=== PATIENT | male | born 1980 | race Caucasian/White ===

== ENCOUNTER 2019-01-31 05:02 | Emergency (ER) | payer SELFPAY ==
[2019-01-31] MEDS ORDERED: ACETAMINOPHEN 500 MG TABLET (FP) PO ONE (05:20)
--- NOTE | 2019-01-31 05:27 | PDOC ---
Attending Attestation - Resident Resident Name: Agueda Escobar - ED Attending Attestation I have performed the following: I have examined & evaluated the patient, The case was reviewed & discussed with the resident, I agree w/resident's findings & plan - HPI HPI: 01/31/19 06:42 38-year-old male with chest tightness after 24 hours of taking crystal meth. - Physicial Exam PE: 01/31/19 06:51 agree with resident exam - Medical Decision Making 01/31/19 06:51 38-year-old male with chest tightness after smoking crystal meth Plan for chest x-ray, EKG and labs Tylenol given for pain Will sign out to day shift
[2019-01-31] MEDS ORDERED: ALBUTEROL SO4 2.5/IPRATROPIUM 0.5 INH SOL 3 ML VIAL.NEB. NEB ONE (05:47)
[2019-01-31] MEDS ORDERED: ACETAMINOPHEN 325 MG TABLET (FP) ONE (05:54)
[2019-01-31] MEDS ORDERED: SODIUM CHLORIDE 1,000 ML IV STA (06:35)
[2019-01-31 07:32] VITALS: TEMP 98.2; BMI 20.3
[2019-01-31 07:45] LABS: BASO % 0.2 % (0-2.0); EOS % 0.1 % (0-4.5); HEMATOCRIT 40.4 % (35.4-49); HEMOGLOBIN 13.7 GM/dL (11.7-16.9); LYMPH % 11.1 % (8-40); MCH 33.5 pg (25.7-33.7); MCHC 33.8 g/dl (32.0-35.9); NEUT % 80.6 % (42.8-82.8); PLATELET COUNT 221 K/MM3 (134-434); RBC 4.08 M/mm3 (4.00-5.60); RDW 13.6 % (11.9-15.9); WHITE BLOOD COUNT 12.6 K/mm3 (4.0-10.0)
--- NOTE | 2019-01-31 07:45 | PDOC ---
History of Present Illness - General Chief Complaint: Asthma Stated Complaint: ASTHMA Time Seen by Provider: 01/31/19 05:15 History Source: Patient Exam Limitations: No Limitations - History of Present Illness Initial Comments: 01/31/19 07:41 38yo M with PMH of Asthma, meth use presenting to ED with complaints of sob. Pt states that around 0400 this AM he felt very short of breath and had chest and back pains. He was given duoneb treatments and brought to the ED. He states that he had been smoking crystal meth for the past few days, as recently as 7pm last night. Denies fevers, chills, cough, syncope, n/v/d, other drug use. He states he tried two pumps of his rescue inhaler and it did not help. PMD: none PMH: see hpi PSH: none Meds: Proventil Allergies: nkda Social: see hpi Past History - Past Medical History Allergies/Adverse Reactions: Allergies Allergy/AdvReac Type Severity Reaction Status Date / Time No Known Allergies Allergy Verified 01/31/19 05:16 COPD: No - Suicide/Smoking/Psychosocial Hx Smoking History: Never smoked Hx Alcohol Use: No Drug/Substance Use Hx: No *Physical Exam - Vital Signs Last Vital Signs Temp Pulse Resp BP Pulse Ox 98.2 F 110 H 24 H 146/78 99 01/31/19 05:13 01/31/19 05:13 01/31/19 05:13 01/31/19 05:13 01/31/19 05:13 ED Treatment Course - LABORATORY CBC & Chemistry Diagram: 01/31/19 06:52 01/31/19 06:52 - RADIOLOGY Radiology Studies Ordered: Category Date Time Status CHEST PA & LAT [RAD] Stat Radiology 01/31/19 05:47 Taken - Medications Given in the ED: ED Medications Discontinued Medications Generic Name Dose Route Start Last Admin Trade Name Freq PRN Reason Stop Dose Admin Acetaminophen 975 mg 01/31/19 05:20 01/31/19 05:56 Tylenol - PO 01/31/19 05:21 975 mg ONCE ONE Administration Albuterol/Ipratropium 1 amp 01/31/19 05:47 01/31/19 05:56 Duoneb - NEB 01/31/19 05:48 1 amp ONCE ONE Administration Sodium Chloride 1,000 mls @ 1,000 mls/hr 01/31/19 06:35 01/31/19 06:56 Normal Saline - IV 01/31/19 07:34 1,000 mls/hr ASDIR STA Administration Medical Decision Making - Medical Decision Making 01/31/19 07:43 38yo M with PMH of Asthma, meth use presenting to ED with complaints of sob. Pt states that around 0400 this AM he felt very short of breath and had chest and back pains. He was given duoneb treatments and brought to the ED. He states that he had been smoking crystal meth for the past few days, as recently as 7pm last night. Denies fevers, chills, cough, syncope, n/v/d, other drug use. He states he tried two pumps of his rescue inhaler and it did not help. Vitals: tachycardia PE: lungs cta, chest ttp, tachycardia, normal neurological exam, AOx4 ddx includes but not limited to drug use, withdrawal, electrolyte/metabolic abnormality, ptx, pneumomediastinum, acs, pe although tachycardic, Wells score low for PE. -duonebs, tylenol -ekg, cxr -labs signed out to day team *DC/Admit/Observation/Transfer Diagnosis at time of Disposition: SOB (shortness of breath) - Discharge Dispostion Condition at time of disposition: Fair - Referrals - Patient Instructions - Post Discharge Activity
--- NOTE | 2019-01-31 07:46 | PDOC ---
*Physical Exam - Vital Signs Last Vital Signs Temp Pulse Resp BP Pulse Ox 98.2 F 110 H 24 H 146/78 99 01/31/19 05:13 01/31/19 05:13 01/31/19 05:13 01/31/19 05:13 01/31/19 05:13 ED Treatment Course - LABORATORY CBC & Chemistry Diagram: 01/31/19 06:52 01/31/19 10:12 - Medications Given in the ED: ED Medications Discontinued Medications Generic Name Dose Route Start Last Admin Trade Name Rosy PRN Reason Stop Dose Admin Acetaminophen 975 mg 01/31/19 05:20 01/31/19 05:56 Tylenol - PO 01/31/19 05:21 975 mg ONCE ONE Administration Albuterol/Ipratropium 1 amp 01/31/19 05:47 01/31/19 05:56 Duoneb - NEB 01/31/19 05:48 1 amp ONCE ONE Administration Medical Decision Making - Medical Decision Making Pt was signed out to me by resident Dr. Escobar, who explained the presentation, ED course, any pending results, and needed interventions. Pending results include labs, x-ray and trop x2. Pt is currently stable and is lying comfortably. 01/31/19 07:34 Pt received 1 L IV NS, 975 mg PO tylenol, and albuterol neb. 01/31/19 07:48 Pt still with reproducible chest pain, providing 600 PO motrin. K 2.9 -- providing 40 PO KCl and 10 meq rider with 500 IV NS Will redraw BMP and trop around 10am 01/31/19 08:22 chest x-ray with no acute pathology. ECG NSR, no ST segment changes 01/31/19 08:41 Sending repeat BMP and troponin 01/31/19 09:59 Second troponin <.02 Repeat K 3.7 Pt can be discharged to home with follow-up. Pt advised to follow-up with PCP in 1-2 days and has been referred to cardiology. Strict return precautions provided with pt understanding. 01/31/19 11:40 *DC/Admit/Observation/Transfer Diagnosis at time of Disposition: SOB (shortness of breath), Substance abuse Chest pain Qualifiers: Chest pain type: unspecified Qualified Code(s): R07.9 - Chest pain, unspecified - Discharge Dispostion Disposition: HOME Condition at time of disposition: Improved Decision to Admit order: No - Referrals Referrals: [facility] [place] [facility] [Provider Group] Miguel Carrillo MD [Staff Physician] - - Patient Instructions Printed Discharge Instructions: Getting Treatment for Drug Addiction, DI for Atypical Chest Pain Additional Instructions: You were seen in the ER today for chest pain. The results of your labs and imaging today were normal. Please follow-up with your primary care doctor and cardiology within 1-2 days to discuss your visit and make sure your symptoms have improved. Please return to the ER if you have any worsening pain, development of fevers or chills, loss of consciousness, inability to tolerate food or fluids, or any other concerns. Please stop using recreational drugs, as this is contributing to your chest pain and is unsafe for use. - Post Discharge Activity
[2019-01-31 07:58] LABS: ALBUMIN 4.1 g/dl (3.4-5.0); ALK PHOS 68 U/L (45-117); ANION GAP 8 MMOL/L (8-16); BILIRUBIN,TOTAL 1.1 mg/dL (0.2-1); BLOOD UREA NITROGEN 18.1 mg/dL (7-18); CALCIUM 9.1 mg/dL (8.5-10.1); CHLORIDE 105 mmol/L (98-107); CO2 26 mmol/L (21-32); CREATININE 1.1 mg/dL (0.55-1.3); GLUCOSE,RANDOM 104 mg/dL (74-106); SGOT/AST 31 U/L (15-37); SGPT/ALT 40 U/L (13-61); SODIUM 138 mmol/L (136-145)
[2019-01-31 08:05] LABS: POTASSIUM 2.9 mmol/L (3.5-5.1)
[2019-01-31] MEDS ORDERED: POTASSIUM CHLORIDE ORAL LIQUID 20 MEQ/15 ML PO ONE (08:13)
[2019-01-31] MEDS ORDERED: KCL 10 MEQ IVPB 10 MEQ/100 ML INFUS.BAG IVPB SCH (08:15)
[2019-01-31] MEDS ORDERED: IBUPROFEN 600 MG TABLET (FP) PO ONE ×2 (08:23→08:33)
[2019-01-31] MEDS ORDERED: POTASSIUM CHLORIDE TABS 20 MEQ TABLET.ER (FP) PO ONE (08:33)
[2019-01-31] MEDS ORDERED: KCL 10 MEQ IVPB 10 MEQ/100 ML INFUS.BAG IVPB ONE (08:33)
[2019-01-31] MEDS ORDERED: SODIUM CHLORIDE 500 ML IV STA (08:40)
[2019-01-31 11:14] LABS: ANION GAP 5 MMOL/L (8-16); BLOOD UREA NITROGEN 15.6 mg/dL (7-18); CALCIUM 8.5 mg/dL (8.5-10.1); CHLORIDE 106 mmol/L (98-107); CO2 28 mmol/L (21-32); CREATININE 0.9 mg/dL (0.55-1.3); GLUCOSE,RANDOM 103 mg/dL (74-106); POTASSIUM 3.7 mmol/L (3.5-5.1); SODIUM 139 mmol/L (136-145)
[2019-01-31 12:00] VITALS: BP 132/74; PULSE 79
--- NOTE | 2019-01-31 17:09 | EKG ---
Test Reason : Blood Pressure : / mmHG Vent. Rate : 097 BPM Atrial Rate : 097 BPM P-R Int : 126 ms QRS Dur : 084 ms QT Int : 362 ms P-R-T Axes : 069 034 055 degrees QTc Int : 459 ms NORMAL SINUS RHYTHM NORMAL ECG NO PREVIOUS ECGS AVAILABLE Confirmed by SHONNA WHITTAKER MD ([id number]) on 01/31/2019 5:09:26 PM Referred By: Confirmed By:SHONNA WHITTAKER MD
== END 2019-01-31 12:01 | disposition home or self-care (01) ==
LOC: JER 05:02
PROC: 3E0F7GC Introduction of Other Therapeutic Substance into Respiratory Tract, Via Natural or Artificial Opening (ICD-10-PCS; principal; 2019-01-31)
PROC: 3E0337Z Introduction of Electrolytic and Water Balance Substance into Peripheral Vein, Percutaneous Approach (ICD-10-PCS; 2019-01-31)
PROC: 3E0337Z Introduction of Electrolytic and Water Balance Substance into Peripheral Vein, Percutaneous Approach (ICD-10-PCS; 2019-01-31)
PROC: 3E033GC Introduction of Other Therapeutic Substance into Peripheral Vein, Percutaneous Approach (ICD-10-PCS; 2019-01-31)
DX: R06.02 Shortness of breath (principal); F15.10 Other stimulant abuse, uncomplicated; E87.6 Hypokalemia; J45.909 Unspecified asthma, uncomplicated
CPT/HCPCS: 36415; 71046-TC-FY; 80048; 80053; 82550; 82553; 84484; 85025; 93005; 93010; 99283-25; J7030